=== PATIENT | female | born 1980 | race Caucasian/White ===

== ENCOUNTER 2016-09-06 07:48 | Day surgery (SDC) | payer OTHER ==
[2016-09-06 08:37] LABS: HEMOGLOBIN 12.1 gm/dl (12.3-15.3); RED BLOOD COUNT 4.01 M/UL (4.00-5.10); WHITE BLOOD COUNT 8.3 K/UL (4.5-11.0)
[2016-09-06] MEDS ORDERED: PRENATA CHEWAB1 EACH PO (08:54)
[2017-02-11] MEDS ORDERED: COLACE 100MG C100 MG PO (17:13)
== END 2016-09-07 08:57 | disposition home or self-care (01) ==
LOC: OR 07:48 → OB 15:00 → OR 09-07 08:57
PROVIDERS: Obstetrics & Gynecology
PROC: 0UVC7ZZ Restriction of Cervix, Via Natural or Artificial Opening (ICD-10-PCS; principal; 2016-09-06 10:15)
DX: O34.32 Maternal care for cervical incompetence, second trimester (principal); O99.89 Other specified diseases and conditions complicating pregnancy, childbirth and the puerperium; M19.90 Unspecified osteoarthritis, unspecified site; Z3A.14 14 weeks gestation of pregnancy; Z87.891 Personal history of nicotine dependence; Z79.899 Other long term (current) drug therapy
CPT/HCPCS: 36415; 81001; 84703; 85025; J7120